=== PATIENT | female | born 1990 | race Caucasian/White ===

== ENCOUNTER 2017-02-07 21:44 | Emergency (ER) | payer BC ==
[~2017-02-07 21:44] MED LIST: BELSOMRA20 MG PO; BENTYL10 M1 PO; BLADDER PILL PO; ELAVIL10 MG PO; GABAPENTIN600 M2 PO; KLONOPIN0.5 M1 PO; LAMICTAL25 M1 PO; LEXAPRO10 MG PO; LORTAB 10-3251 EAC1 PO; METHADONE HCL10 M1 PO; MIGRANAL4 MG/ML; MYBETRIQ PO; MYRBETRIQ50 M1 PO; NEURONTIN300 M1 PO; NEXIUM40 M1 PO; PROPRANOLOL HCL10 M1 PO; SKELAXIN800 M1 PO; SOMA350 M1 PO; TOPAMAX100 M2 PO; VISTARIL50 M1 PO; ZOFRAN4 M2 PO; [UNRECOGNIZED DRUG - OTHER] IM
[2017-03-29] MEDS ORDERED: DIHYDROERGO1 MG/1 M1 SC (20:56)
[2017-03-29] MEDS ORDERED: ZOLOFT50 M1 PO (20:57)
[2017-03-29] MEDS ORDERED: OXYCONTIN10 M2 PO (20:59)
== END 2017-02-07 23:25 ==
LOC: EDMED 21:44
DX: G43.909 Migraine, unspecified, not intractable, without status migrainosus (principal); R63.2 Polyphagia; Z76.5 Malingerer [conscious simulation]